=== PATIENT | male | born 1955 | race Caucasian/White ===

== ENCOUNTER 2018-04-04 08:12 | Emergency (ER) | payer MEDICAID ==
[~2018-04-04] VITALS: Ht 162.6 cm; Wt 64.0 kg
[2018-04-04 08:16] VITALS: Ht 162.6 cm; Wt 64.0 kg
[2018-04-04 09:19] LABS: BASOPHIL % 0.1 % (0-2); PLATELET COUNT 252 x10^3mcL (130-400); RED CELL DISTRIBUTION WIDTH 13.9 % (11.5-14.5)
[2018-04-04 09:29] LABS: CALCIUM 8.7 mg/dL (8.5-10.1); CHLORIDE SERUM 98 mmol/L (98-107); GFR1 > 60 mL/min; GLUCOSE SERUM 133 mg/dL (74-106); POTASSIUM SERUM 3.8 mmol/L (3.5-5.1); SODIUM SERUM 132 mmol/L (136-145)
[2018-04-04 09:43] LABS: ALKALINE PHOSPHATASE 113 U/L (46-116); ALT/SGPT 65 U/L (16-63); AST/SGOT 64 U/L (15-37); BILIRUBIN TOTAL 0.57 mg/dL (0.20-1.00); T4(THYROXINE) 5.1 ug/dL (4.7-13.3); TOTAL PROTEIN, SERUM 7.1 g/dL (6.4-8.2)
[2018-04-04 09:50] LABS: ALBUMIN 2.7 g/dL (3.4-5.0)
[2018-04-04 09:53] LABS: UA SPECIFIC GRAVITY >=1.030 (1.005-1.035); microscopic required? YES; urine erythrocyte NEGATIVE (NEGATIVE)
[2018-04-04 10:20] LABS: C REACTIVE PROTEIN < 0.2 mg/dL (<=0.9)
[2018-04-04 10:46] LABS: ERYTHROCYTE SED RATE 50 mm/hr (0-20)
[2018-04-04 13:19] VITALS: BP 124/66
== END 2018-04-04 13:20 | disposition home or self-care (01) ==
LOC: ED 08:12
PROVIDERS: Emergency Medicine
DX: E87.1 Hypo-osmolality and hyponatremia (principal); E46 Unspecified protein-calorie malnutrition; F10.20 Alcohol dependence, uncomplicated; F17.210 Nicotine dependence, cigarettes, uncomplicated; R74.0 Nonspecific elevation of levels of transaminase and lactic acid dehydrogenase [LDH]; Z71.6 Tobacco abuse counseling
CPT/HCPCS: 36415; 82962; 83880; 99406